=== PATIENT | female | born 1965 | race Caucasian/White ===

== ENCOUNTER → 2016-08-08 | Outpatient (CLI) | payer BC | LOC: RAD 07:30 | PROVIDERS: ATTEND Otolaryngology | DX: J34.3 Hypertrophy of nasal turbinates (principal) | CPT/HCPCS: 70486 ==

== ENCOUNTER → 2016-12-22 | Outpatient (CLI) | payer BC ==
--- NOTE | 2016-12-22 13:10 | WOMENS IMAGING REPORT ---
EXAM DESCRIPTION: BILAT SCREENING MAMMO W/CAD COMPLETED DATE/TIME: 12/22/2016 11:00 am REASON FOR STUDY: SCREENING MAMMO Z12.31 ENCNTR SCREEN MAMMOGRAM FOR MALIGNANT NEOPLASM OF JOSÉ MIGUEL COMPARISON: None. TECHNIQUE: Standard craniocaudal and mediolateral oblique views of each breast recorded using digita l acquisition. LIMITATIONS: None. FINDINGS: No masses, calcifications or architectural distortion. No areas of suspicion. Read with the assistance of CAD. .[facility] - R2 Cenova Version 1.3 .[facility] Imaging - R2 Cenova Version 1.3 .[facility] Imaging - R2 Cenova Version 2.4 .[facility] - R2 Cenova Version 2.4 .[facility] - R2 Waste Minimization Technician Version 9.2 IMPRESSION: NORMAL MAMMOGRAM. BIRADS 1. BREAST DENSITY: b. There are scattered areas of fibroglandular density. BIRAD: 1 NEGATIVE RECOMMENDATION: ROUTINE SCREENING COMMENT: The patient has been notified of the results by letter per SA requirements. Additional no tification policies are in place for contacting patient with suspicious or incomplete findings. Quality ID #[id number]: The [employer] recommends an annual screening mammogram for women aged 40 years or over. This facility utilizes a reminder system to ensure that all patients receive reminder letters, and/or direct phone calls for appointments. This includes reminders for routine scr eening mammograms, diagnostic mammograms, or other Breast Imaging Interventions when appropriate. Th is patient will be placed in the appropriate reminder system. The [employer] (ACR) has developed recommendations for screening MRI of the breast s in certain patient populations, to be used in conjunction with mammography. Breast MRI surveillanc e may be appropriate for women with more than 20% lifetime risk of developing breast cancer as deter mined by genetic testing, significant family history of the disease, or history of mantle radiation f or Hodgkins Disease. ACR Practice Guidelines 2008. TECHNICAL DOCUMENTATION: FINDING NUMBER: (1) ASSESSMENT: (1) JOB ID: [id number] [employer]- All Rights Reserved
== END ==
LOC: WI 10:37
PROVIDERS: ATTEND Internal Medicine
DX: Z12.31 Encounter for screening mammogram for malignant neoplasm of breast (principal)
CPT/HCPCS: 77067; G0202

== ENCOUNTER 2017-12-08 07:33 | Day surgery (SDC) | payer BC ==
[2017-12-05 09:54] LABS: HEMATOCRIT 41.3 % (36.0-47.0); HEMOGLOBIN 13.6 g/dL (12.0-15.5); MEAN CORPUSCULAR HEMOGLOBIN 27.5 pg (27.0-33.4); MEAN CORPUSCULAR HGB CONC 32.8 g/dL (32.0-36.0); MEAN CORPUSCULAR VOLUME 84 fl (80-97); PLATELET COUNT 212 10^3/uL (150-450); RED BLOOD COUNT 4.93 10^6/uL (3.72-5.28); RED CELL DISTRIBUTION WIDTH 13.8 % (11.5-14.0); WHITE BLOOD COUNT 4.9 10^3/uL (4.0-10.5)
--- NOTE | 2017-12-05 12:42 | EKG REPORT ---
SEVERITY:- BORDERLINE ECG - SINUS RHYTHM LOW VOLTAGE PRECORDIAL LEADS. : Confirmed by: Rigo Muhammad MD 05-Dec-2017 12:42:08
[~2017-12-08 07:33] MED LIST: CEFAZOLIN 2 GM/D5W RTU 2 GM/50 ML RTUPB IV PRN; CEFAZOLIN SODIUM 2 GM in DEXTROSE 5%-WATER 100 ML IV SCH; LACTATED RINGERS 1000 ML IV PRN; LIDOCAINE 0.5% INJ-PF (5 MG/ML) 50 ML SDV SUBCUT PRN
[2017-12-08] MEDS ORDERED: BUPIVACAINE HCL 0.5%/EPI 1:200000 INJ 1.8 ML CARTRIDGE ONE (08:20)
[2017-12-08] MEDS ORDERED: MINERAL OIL (STERILE) 10 ML VIAL ONE (08:20)
[2017-12-08] MEDS ORDERED: LIDOCAINE 1%/EPINEPHRINE INJ 20 ML VIAL ONE (08:21)
[2017-12-08] MEDS ORDERED: BACITRACIN ZINC OINTMENT 15 GM ONE (08:21)
[2017-12-08] MEDS ORDERED: OXYMETAZOLINE HCL 0.05% NASAL SPRAY 15 ML BOTTLE ONE (08:24)
[2017-12-08 08:41] LABS: ANION GAP 12 (5-19); BLOOD UREA NITROGEN 9 mg/dL (7-20); CALCIUM 9.2 mg/dL (8.4-10.2); CARBON DIOXIDE 23 mmol/L (22-30); CHLORIDE 107 mmol/L (98-107); GLUCOSE 192 mg/dL (75-110); POTASSIUM 4.1 mmol/L (3.6-5.0); SODIUM 141.7 mmol/L (137-145)
[2017-12-08] MEDS: FAMOTIDINE INJ/PF 20 MG/2 ML SDV IV ONE ×2 (09:14→09:15)
[2017-12-08] MEDS: SCOPOLAMINE HYDROBROMIDE 1.5 MG PATCH.TD72 ONE ×2 (09:14→09:15)
[2017-12-08] MEDS ORDERED: MIDAZOLAM 2 MG/2 ML INJ ONE (09:27)
[2017-12-08] MEDS ORDERED: HYDROMORPHONE HCL INJ/PF 2 MG/ML AMPULE ONE (09:27)
[2017-12-08] MEDS ORDERED: FENTANYL CITRATE INJ/PF 100 MCG/2 ML AMPUL ONE (09:27)
[2017-12-08] MEDS ORDERED: EPHEDRINE SULFATE INJ 50 MG/1 ML AMPULE ONE (09:28)
[2017-12-08] MEDS ORDERED: ACETAMINOPHEN 1,000 MG/100 ML RTUPB IV ONE (09:28)
[2017-12-08] MEDS ORDERED: PROPOFOL INJ 200 MG/20 ML VIAL IV ONE (09:28)
[2017-12-08] MEDS ORDERED: SUCCINYLCHOLINE CHLORIDE INJ 200 MG/10 ML VIAL ONE (10:28)
[2017-12-08] MEDS ORDERED: DEXAMETHASONE SOD PHOSPHATE INJ 4 MG/1 ML VIAL ONE (10:28)
[2017-12-08] MEDS ORDERED: METOCLOPRAMIDE HCL INJ/PF 10 MG/2 ML SDV ONE (10:28)
[2017-12-08] MEDS ORDERED: ONDANSETRON HCL INJ/PF 4 MG/2 ML SDV ONE (10:28)
[2017-12-08] MEDS ORDERED: PROMETHAZINE HCL INJ 25 MG/1 ML VIAL IV PRN ×3 (10:38→12:47)
[2017-12-08] MEDS ORDERED: ONDANSETRON HCL INJ/PF 4 MG/2 ML SDV IV PRN ×3 (10:38→13:10)
[2017-12-08] MEDS ORDERED: FENTANYL CITRATE INJ/PF 100 MCG/2 ML AMPUL IV PRN ×3 (10:38)
[2017-12-08] MEDS ORDERED: DIPHENHYDRAMINE HCL 50 MG/ML VIAL IV PRN (10:38)
[2017-12-08] MEDS ORDERED: RINGERS SOLUTION,LACTATED 1,000 ML IV PRN (12:47)
[2017-12-08] MEDS ORDERED: MORPHINE SULFATE 10 MG/ML INJ IV PRN (12:47)
[2017-12-08] MEDS ORDERED: HYDROCODONE/ACETAMINOPHEN 5-325 MG TABLET PO PRN (12:47)
[2017-12-08] MEDS ORDERED: OXYCODONE-ACETAMINOPHEN 5-325 MG TABLET PO PRN ×2 (13:10→14:30)
[2017-12-08] MEDS ORDERED: ONDANSETRON 4 MG TAB.RAPDIS PO PRN (13:10)
[2017-12-08 15:31] VITALS: BP 131/92
--- NOTE | 2017-12-12 20:06 | SURGICARE OPERATIVE REPORT E ---
[facility] Operative Report NAME: KEEGAN GALICIA AGE: 52Y DATE OF SURGERY: 12/08/2017 ROOM: PREOPERATIVE DIAGNOSES: 1. Nasal septal deviation, acquired. 2. Chronic nasal dyspnea. 3. Bilateral inferior turbinate hypertrophy. 4. Middle turbinate hypertrophy. POSTOPERATIVE DIAGNOSIS: 1. Nasal septal deviation, acquired. 2. Chronic nasal dyspnea. 3. Bilateral inferior turbinate hypertrophy. 4. Middle turbinate hypertrophy. OPERATION: 1. Septoplasty. 2. Bilateral inferior turbinate reduction using a submucous resection technique. 3. Right middle turbinate reduction performed via right transnasal rigid surgical endoscopy. SURGEON: ISABEL HDZ D.O. ANESTHESIA: General via general endotracheal anesthesia. ANESTHESIA STAFF: Brandyn Schaffer. ESTIMATED BLOOD LOSS: 50 mL. FLUIDS: 1400 mL. COMPLICATIONS: None. DRAINS: None. COUNTS: Sponge count verified. Needle count verified. TISSUE REMOVED OR ALTERED: Materials forwarded as a specimen: None. FINDINGS: 1. Right nasal septal deviation involving bone and cartilage, and there was a large right maxillary crest spur/septal spur. 2. Right much greater than left middle turbinate hypertrophy. 3. Bilateral inferior turbinate hypertrophy. 4. Bilateral maxillary sinus os were noted to be patent and unobstructed. 5. There was no sign of polyps or nasal polyp disease, and there was no discharge noted. INDICATION: This is a 52-year-old female patient, who was seen and evaluated in the [place] [facility]. The patient had been referred for and she complained of a history of chronic nasal dyspnea over the years. The patient denied difficulty with acute recurrent sinus disease or sinus infections or chronic rhinosinusitis difficulty. The patient has desired over the years to improve her functional nasal airflow. After extensive discussion with the patient, recommendation and plan was made to proceed with septoplasty, bilateral inferior turbinate reductions, and middle turbinate reduction. The procedures and all of their risks and complications were all discussed in detail with the patient. She voiced an understanding of the described surgical plan, agreed to proceed, and consent was obtained. PROCEDURE: @ DICTATING PHYSICIAN: ISABEL HDZ D.O. [id number] PHY#: [id number] ID: [id number] JOB#: [id number] ACCT: [id number] cc:ISABEL HDZ D.O. >
--- NOTE | 2017-12-12 20:56 | SURGICARE OPERATIVE REPORT E ---
[facility] Operative Report NAME: KEEGAN GALICIA AGE: 52Y DATE OF SURGERY: 12/08/2017 ROOM: PREOPERATIVE DIAGNOSES: 1. NASAL SEPTAL DEVIATION, ACQUIRED. 2. CHRONIC NASAL DYSPNEA. 3. BILATERAL INFERIOR TURBINATE HYPERTROPHY. 4. MIDDLE TURBINATE HYPERTROPHY. POSTOPERATIVE DIAGNOSES: 1. NASAL SEPTAL DEVIATION, ACQUIRED. 2. CHRONIC NASAL DYSPNEA. 3. BILATERAL INFERIOR TURBINATE HYPERTROPHY. 4. MIDDLE TURBINATE HYPERTROPHY. OPERATION PERFORMED: 1. Septoplasty. 2. Bilateral inferior turbinate reduction using a submucous resection technique. 3. Right middle turbinate reduction. 4. Right transnasal rigid surgical endoscopy. SURGEON: ISABEL HDZ D.O. ANESTHESIA: General endotracheal tube. ANESTHESIA STAFF: Brandyn Schaffer CRNA. ESTIMATED BLOOD LOSS: 50 mL. FLUIDS: 1400 mL. COMPLICATIONS: None. DRAINS: None. SPONGE COUNT: Verified. NEEDLE Continue: Verified. TISSUE REMOVED OR ALTERED: Materials forwarded as specimen none. FINDINGS: 1. Right nasal septal deviation involving bone and cartilage, and there was a large right maxillary crest spur/septal spur. 2. Right much greater than left, middle turbinate hypertrophy. 3. Bilateral inferior turbinate hypertrophy. 4. Bilateral maxillary sinus os were noted to be unobstructed from view and patent, and there was no sinus discharge noted. 5. No sinonasal polyps or polyp disease noted. INDICATIONS: This is a 52-year-old white female who was seen and evaluated in the [place] [facility] office. The patient had been referred for, and she complained of, a history of chronic nasal dyspnea over the years. She denied history of acute recurrent sinusitis or chronic sinus disease. She has desire over the years to have her functional nasal airflow improved. After extensive discussion with the patient, recommendation and plan was made to proceed with septoplasty, bilateral inferior turbinate reduction, rigid surgical endoscopy, and middle turbinate reduction. The procedures and all of their risks and complications were discussed in detail with the patient. She voiced an understanding of the described surgical plan, agreed to proceed, and consent was obtained. PROCEDURE IN DETAIL: The patient was taken to the main operating room and was placed on the operating room table in the supine position. Appropriate monitors were placed. Using mask and IV access general anesthesia was induced. The patient was transorally intubated without difficulty. The patient was then positioned and prepped for nasal surgery. The patient underwent a nasal examination with injection of local anesthetic with epinephrine to establish a nasal block. Next 2 Afrin-soaked neuro patties were placed per side. At this point the patient was prepped and draped in the usual fashion for nasal surgery. At this point the 2 Afrin-soaked neuro patties were removed and there was a hemitransfixion incision performed with elevation of the mucoperichondrial and mucoperiosteal flaps without difficulty. The bony cartilage and its junction was identified and divided and the most deviated portions of septal bone and cartilage were removed. At this point the maxillary crest spur/septal spur were removed without difficulty using a V-gouge. There was a greater than 1.5 x 1.5 cm cartilaginous L-strut that was preserved. At this point the turbinate bipolar wand was used to make 2 passes in each inferior turbinate. The anterior portion of each inferior turbinate was entered with a pair of Norris's scissors followed by elevation of the tissue in a submucosal plane using a [place] elevator. At this point the turbinate microdebrider system at a setting of 1500 rpm. was used to perform submucous resection on each side. A pair of Takahashis was used to remove the anterior portion of turbinate bone consisting of less than 1 cm per side. At this point the redundant/excess mucosa was trimmed and the margins were reapproximated with chromic suture. At this point the zero degree rigid endoscope was used for surgical endoscopy. This was utilized throughout the middle turbinate reduction portion of the case. The straight Carey clamp was first used on the right to create controlled fractures in the middle turbinate. Once complete under surgical endoscopy sinus surgical instruments were used to perform right middle turbinate reduction of the anterior portion. Once complete the rigid endoscope and instrumentation was withdrawn. The nose was thoroughly irrigated and suctioned and there was adequate hemostasis noted. Findings were as noted above. There was cartilage that had been removed during the case that was placed back between the mucosal flaps to be banked. The hemitransfixion incision was reapproximated with chromic suture. Next, 1 Fonseca silicon nasal splint with bacitracin ointment was placed per side and these were secured at the caudal aspect with 4-0 Prolene suture. The patient's nose was then cleaned and dried. The patient was returned to the anesthesia staff and was allowed to merge from general anesthesia. The patient was extubated in the main operating room and was then transported to the postanesthesia recovery unit in stable condition. There were no complications. DICTATING PHYSICIAN: ISABEL HDZ D.O. [id number] PHY#: [id number] ID: [id number] JOB#: [id number] ACCT: [id number] cc:ISABEL HDZ D.O. >
== END 2017-12-08 15:15 | disposition home or self-care (01) ==
LOC: OROUT 07:33
PROVIDERS: ATTEND Otolaryngology
DX: J34.2 Deviated nasal septum (principal); J34.3 Hypertrophy of nasal turbinates; J32.0 Chronic maxillary sinusitis; J30.9 Allergic rhinitis, unspecified; J30.2 Other seasonal allergic rhinitis; D64.9 Anemia, unspecified; K11.6 Mucocele of salivary gland; R06.00 Dyspnea, unspecified; Z88.2 Allergy status to sulfonamides; Z79.899 Other long term (current) drug therapy
CPT/HCPCS: 93005; 36415 ×2; 85027; 80048; 93010; 30520; 30140; J2250; J3490 ×5; J0690; J1100; J3010; J2765; J1170; J0330; J2405; J2704; S0028; J0131; 160

== ENCOUNTER 2018-02-12 09:58 | Day surgery (SDC) | payer BC ==
[~2018-02-12 09:58] MED LIST changes: -CEFAZOLIN 2 GM/D5W RTU 2 GM/50 ML RTUPB IV PRN; -CEFAZOLIN SODIUM 2 GM in DEXTROSE 5%-WATER 100 ML IV SCH; -LACTATED RINGERS 1000 ML IV PRN; -LIDOCAINE 0.5% INJ-PF (5 MG/ML) 50 ML SDV SUBCUT PRN; +PROPOFOL INJ 200 MG/20 ML VIAL IV ONE
[2018-02-12 12:04] VITALS: BP 138/83
--- NOTE | 2018-02-12 12:54 | Operative Report ---
Operative Report DATE OF SURGERY: 02/12/18 Operative Report: The risks, benefits and alternatives of the procedure including the risk of bleeding, perforation requiring surgery are explained to the patient in detail and informed consent is obtained. Patient is taken back to the endoscopy suite and placed in the left, lateral decubital position. Timeout was called. Propofol medication is administered. A rectal examination is done which did not reveal any masses, tears or fissures. An Olympus videoscope was introduced into the patient's rectum. The scope was then carefully advanced all the way to the cecum. The cecum was identified by the usual anatomical landmarks of the ileocecal valve and the appendiceal office. Photodocumentation is obtained. The scope was then sequentially pulled back via the various segments of the colon including the ascending colon, hepatic flexure, transverse colon, splenic flexure, descending colon and finally in to the rectosigmoid portions of the colon. Retroflexion maneuvers performed. Prep was good. PREOPERATIVE DIAGNOSIS: Colorectal cancer screening POSTOPERATIVE DIAGNOSIS: Normal screening colonoscopy OPERATION: Diagnostic colonoscopy SURGEON: EWA AVELAR ANESTHESIA: LMAC TISSUE REMOVED OR ALTERED: None. COMPLICATIONS: None. ESTIMATED BLOOD LOSS: None. INTRAOPERATIVE FINDINGS: Incidental finding of mild diverticulosis and internal hemorrhoids PROCEDURE: Patient tolerated the procedure well. No immediate postprocedure complications are noted. Patient discharged in good condition. Discharge date 02/12/2018. Discharge diet: Regular. Discharge activity: Regular. 2-3-week follow-up to discuss findings. 10-year surveillance colonoscopy.
== END 2018-02-12 11:50 | disposition home or self-care (01) ==
LOC: END 09:58
PROVIDERS: ATTEND Internal Medicine Gastroenterology
DX: Z12.11 Encounter for screening for malignant neoplasm of colon (principal); K57.30 Diverticulosis of large intestine without perforation or abscess without bleeding; K64.8 Other hemorrhoids; E11.9 Type 2 diabetes mellitus without complications; E66.9 Obesity, unspecified; E78.5 Hyperlipidemia, unspecified; Z79.899 Other long term (current) drug therapy; Z79.1 Long term (current) use of non-steroidal anti-inflammatories (NSAID); Z88.2 Allergy status to sulfonamides; Z68.42 Body mass index [BMI] 45.0-49.9, adult; Z79.84 Long term (current) use of oral hypoglycemic drugs
CPT/HCPCS: 82962; G0121; J2704; 45378; 812

== ENCOUNTER 2018-12-23 10:18 | Emergency (ER) | payer BC ==
[2018-12-23] MEDS ORDERED: KETOROLAC TROMETHAMINE INJ/PF 30 MG/1 ML SDV IV ONE (10:35)
[2018-12-23] MEDS ORDERED: DIPHENHYDRAMINE HCL 50 MG/ML VIAL IV ONE (10:35)
[2018-12-23] MEDS ORDERED: PROCHLORPERAZINE EDISYLATE INJ 10 MG/2 ML VIAL IV ONE (10:36)
--- NOTE | 2018-12-23 10:36 | ER Document Report ---
HPI - HPI Pain Level: 3 Notes: Patient is a 53-year-old female with history of restless leg syndrome presents complaining of a posterior headache that will occasionally radiate to the top of her head bilaterally for the last week. Patient states that her headache has been mild but lingering. This is not the worst headache of her life and did not start as a thunderclap. She has been able to eat and drink without difficulty. She is urinating normally and having normal bowel movements. She has not had any medicines for her symptoms. Patient can make her symptoms worse sometimes when moving her head in certain directions as she feels a pulling sensation in the back of her neck/head area. No recent illness. She is otherwise feeling well. Denies any fever, head injury, changes in vision/speech/mentation/hearing, URI, sore throat, chest pain, palpitations, syncope, cough, shortness of breath, wheeze, dyspnea, abdominal pain, nausea/vomiting/diarrhea, urinary retention, dysuria, hematuria, loss of control of bowel or bladder, numbness/tingling, saddle anesthesia, muscle paraly sis/weakness, or rash. - ROS Systems Reviewed and Negative: Yes All other systems reviewed and negative - REPRODUCTIVE Reproductive: DENIES: : Past Medical History - Social History Smoking Status: Never Smoker Family History: None, Reviewed & Not Pertinent - Past Medical History Cardiac Medical History: Denies: Hx Coronary Artery Disease, Hx Heart Attack, Hx Hypertension Pulmonary Medical History: Reports: Hx Bronchitis Denies: Hx Asthma, Hx COPD, Hx Pneumonia Neurological Medical History: Denies: Hx Cerebrovascular Accident, Hx Seizures Renal/ Medical History: Reports: Hx Kidney Stones Musculoskeletal Medical History: Reports Hx Arthritis - Immunizations Hx Diphtheria, Pertussis, Tetanus Vaccination: Yes Vertical Provider Document - CONSTITUTIONAL Agree With Documented VS: Yes Notes: PHYSICAL EXAMINATION: GENERAL: Well-appearing, well-nourished and in no acute distress. A&Ox4. Answers questions appropriately. HEAD: Atraumatic, normocephalic. Non-tender. I am able to somewhat reproduce, but improve her symptoms by massaging near the occipital nerve bundles b/l. EYES: Pupils equal round and reactive to light, extraocular movements intact, sclera anicteric, conjunctiva are normal. No nystagmus. vis nuñez intact. ENT: Nares patent and without discharge. oropharynx clear without exudates. No tonsilar hypertrophy or erythema. Moist mucous membranes. No sinus tenderness. NECK: Normal range of motion, supple without lymphadenopathy. No rigidity/meningismus. No midline tenderness. LUNGS: Breath sounds clear to auscultation bilaterally and equal. No wheezes rales or rhonchi. HEART: Regular rate and rhythm without murmurs, rubs, gallops. ABDOMEN: Soft, nontender, nondistended abdomen. No guarding, no rebound. Normal bowel sounds present. No CVA tenderness bilaterally. Musculoskeletal: Ext b/l: FROM to passive/active. Strength 5+/5. No deficits noted. No bony tenderness of extremities. Extremities: No cyanosis, clubbing, or edema b/l. Peripheral pulses 2+. Capillary refill less than 2 seconds. NEUROLOGICAL: NIH 0. GCS 15. Cranial nerves grossly intact. Normal speech, normal gait. Normal sensory, motor exams. Reflexes 2+ b/l. GIDEON's negative. Pronator drift negative. Heel/valladares, finger/nose wnl. Romberg neg. PSYCH: Normal mood, normal affect. SKIN: Warm, Dry, normal turgor, no rashes or lesions noted. - INFECTION CONTROL TRAVEL OUTSIDE OF THE [place] IN LAST 30 DAYS: No COUNTRY TRAVELED TO/FROM: [facility] Course - Re-evaluation Re-evalutation: 12/23/18 Patient is an afebrile, well-hydrated, 53-year-old female who presents to the ED with a headache, suspect occipital neuritis/tension LUZ. Vitals are acceptable without any significant tachycardia, tachypnea, or hypoxia. PE is otherwise unremarkable for any focal neurological deficits. I was able to reproduce and improve her symptoms with massage near the occipital nerve bundles bilaterally. Kernig and Brudzinski was negative without any other symptomatology associated with meningitis. NIH 0, GCS 15, cranial nerves grossly intact. No labs or imaging warranted at this time based on H&P. Patient was given Toradol, Compazine, and benadryl which has resolved her headache. Patient states that she is feeling much better and would like to go home. Pt has a ride coming for her as I do not want her to drive home when drowsy. She is nontoxic-appearing and is tolerating p.o. without any difficulties. Low suspicion for any acute glaucoma, temporal arteritis, meningitis, intracranial hemorrhage, ischemic stroke, or fracture at this time. Patient is aware that this condition can change from initial presentation and that she needs to monitor symptoms closely for any acute changes. Recheck with your PCM/neurologist in 3-5 days. Return to the ED with any worsening/concerning symptoms otherwise as reviewed in discharge. Patient is in agreement. - Vital Signs Vital signs: Temp Pulse Resp BP Pulse Ox 97.6 F 79 15 176/89 H 96 12/23/18 10:22 12/23/18 10:22 12/23/18 10:22 12/23/18 10:12/23/18 10:22 Discharge - Discharge Clinical Impression: Headache Qualifiers: Headache type: tension-type Headache chronicity pattern: acute headache Intractability: not intractable Qualified Code(s): G44.209 - Tension-type headache, unspecified, not intractable Condition: Stable Disposition: HOME, SELF-CARE Instructions: Headache ([facility]) Additional Instructions: Rest, Ice/cool compress Tylenol/ibuprofen as needed Light stretches daily Strength exercises as able Moist heat and massage may help F/u with your PCP in 3-5 days for a recheck Consider consult(s) with Neurology for ongoing/worsening symptoms Return to the ED with any worsening symptoms and/or development of fever, headache, changes in behavior/mentation/vision/speech, chest pain, palpitations, syncope, shortness of breath, trouble breathing, abdominal pain, n/v/d, blood in stool/urine, loss of control of bowel/bladder, urinary retention, muscle weakness/paralysis, saddle anesthesia, numbness/tingling, or other worsening symptoms that are concerning to you. Forms: Elevated Blood Pressure Referrals: GILMA RASMUSSEN DPM [Primary Care Provider] - Follow up as needed ANA RUFF MD [NO LOCAL MD] - Follow up as needed
[2018-12-23 12:03] VITALS: BP 128/80
== END 2018-12-23 12:03 | disposition home or self-care (01) ==
LOC: ER 10:18
DX: G44.209 Tension-type headache, unspecified, not intractable (principal)
CPT/HCPCS: 99283; 96374; 96375; J1200; J1885; J0780

== ENCOUNTER 2019-05-24 18:04 | Emergency (ER) | payer BC ==
[2019-05-24 19:04] VITALS: BP 163/99
--- NOTE | 2019-05-24 19:18 | ER Document Report ---
HPI - HPI Time Seen by Provider: 05/24/19 19:13 Notes: Patient is a 53-year-old female with a history of restless leg who presents complaining of feeling a small movable bump to her right lower back that she began noticing about a week ago. It has not been changing in size. She has not noticed any redness to the skin or drainage. Patient states that it does have a little bit of soreness to touch, but no other issues with it. Denies any headache, fever, head injury, neck pain, changes in vision/speech/mentation/hearing, URI, sore throat, chest pain, palpitations, syncope, cough, shortness of breath, wheeze, dyspnea, abdominal pain, nausea/vomiting/diarrhea, urinary retention, dysuria, hematuria, loss of control of bowel or bladder, numbness/tingling, saddle anesthesia, muscle paralysis/weakness, or rash. - ROS Systems Reviewed and Negative: Yes All other systems reviewed and negative - REPRODUCTIVE Reproductive: DENIES: : Past Medical History - Social History Smoking Status: Unknown if Ever Smoked Family History: None, Reviewed & Not Pertinent - Past Medical History Cardiac Medical History: Denies: Hx Coronary Artery Disease, Hx Heart Attack, Hx Hypertension Pulmonary Medical History: Reports: Hx Bronchitis Denies: Hx Asthma, Hx COPD, Hx Pneumonia Neurological Medical History: Denies: Hx Cerebrovascular Accident, Hx Seizures Renal/ Medical History: Reports: Hx Kidney Stones Musculoskeletal Medical History: Reports Hx Arthritis Past Surgical History: Reports: Hx Hysterectomy, Hx Kidney (Renal Surgery) - stones, Hx Tubal Ligation - Immunizations Hx Diphtheria, Pertussis, Tetanus Vaccination: Yes Vertical Provider Document - CONSTITUTIONAL Agree With Documented VS: Yes Notes: PHYSICAL EXAMINATION: GENERAL: Well-appearing, well-nourished and in no acute distress. LUNGS: Breath sounds clear to auscultation bilaterally and equal. No wheezes rales or rhonchi. HEART: Regular rate and rhythm without murmurs, rubs, gallops. Musculoskeletal: LE's b/l: FROM to passive/active. Strength 5+/5. No deficits noted. No bony tenderness of extremities. Back: FROM to passive/active. Strength 5+/5. No vertebral point tenderness, stepoffs, or deformities. No other bony tenderness, erythema, swelling, or ecchymosis. SLR negative b/l. No SI jt tenderness. No foot drop Extremities: No cyanosis, clubbing, or edema b/l. Peripheral pulses 2+. Capillary refill less than 2 seconds. NEUROLOGICAL: Normal speech, normal gait. Normal sensory, motor exams. Reflexes 2+ b/l. PSYCH: Normal mood, normal affect. SKIN: there is a freely moveable small round rubbery cystic lesion to the low back skin area. No erythema, ecchymosis, fluctuance, streaks, induration. - INFECTION CONTROL TRAVEL OUTSIDE OF THE [place] IN LAST 30 DAYS: No COUNTRY TRAVELED TO/FROM: [facility] Course - Re-evaluation Re-evalutation: 05/24/19 19:21 Patient is an afebrile, well-hydrated, 53-year-old female who presents to the ED with a possible small cyst lower back w/o evidence of superimposed infection or abscess. Vitals are acceptable. PE is otherwise unremarkable for any focal neurological deficits. She has no significant tachycardia, tachypnea, or hypoxia. She is nontoxic-appearing and is tolerating p.o. without difficulties. No other red flag symptoms noted. No other labs or imaging warranted at this time based on H&P. Low suspicion for any meningitis, fracture, expanding/ruptured AAA, cauda equina syndrome, epidural mass lesion/abscess, herniated disc causing severe spinal stenosis, or other systemic infection at this time. Patient is aware that this condition can change from initial presentation and that she needs monitor symptoms closely for any acute changes. Conservative measures otherwise for symptoms. Recheck with your PCM in 3-5 days. Consider consult with surgery. Return to the ED with any worsening/concerning symptoms otherwise as reviewed discharge. Patient is in agreement. - Vital Signs Vital signs: Temp Pulse Resp BP Pulse Ox 98.8 F 83 18 163/99 H 100 05/24/19 19:03 05/24/19 19:03 05/24/19 19:03 05/24/19 19:03 05/24/19 19:03 Discharge - Discharge Clinical Impression: Cyst Condition: Stable Disposition: HOME, SELF-CARE Additional Instructions: Keep the skin clean Wash with soap and water Tylenol/ibuprofen if needed Take medication as directed Monitor for any worsening symptoms Recheck with your PCM in 3-5 days Consider consult with General Surgeon for ongoing/worsening symptoms Return to the ED with any worsening symptoms and/or development of fever, headache, chest pain, palpitations, syncope, shortness of breath, trouble breathing, abdominal pain, n/v/d, abscess, purulent discharge, red streaks, wo rsening swelling, or other worsening symptoms that are concerning to you. Forms: Elevated Blood Pressure Referrals: GILMA RASMUSSEN DPM [Primary Care Provider] - Follow up as needed YULISA PARK MD [ACTIVE STAFF] - Follow up as needed
== END 2019-05-24 19:25 | disposition home or self-care (01) ==
LOC: ER 18:04
DX: L72.8 Other follicular cysts of the skin and subcutaneous tissue (principal); Z90.710 Acquired absence of both cervix and uterus; Z98.51 Tubal ligation status
CPT/HCPCS: 99283